=== PATIENT | female | born 2000 | race Hispanic/Latino ===

== ENCOUNTER 2018-11-28 20:53 | Emergency (ER) | payer MEDICAID, OTHER ==
[2018-11-28] MEDS ORDERED: ACETAMINOPHEN EXTRA STRENGTH 500 MG TABLET ONE (21:20)
[2018-11-28 21:46] LABS: RAPID GROUP A STREP NEGATIVE (NEGATIVE)
[2018-11-28 22:45] LABS: APPEARANCE,URINE Clear (CLEAR); BILIRUBIN,URINE Negative (NEGATIVE); COLOR,URINE Yellow (YELLOW); GLUCOSE, URINE (UA) Negative (NEGATIVE); HCG,QUAL RESULT NEGATIVE (NEGATIVE); KETONES,URINE 15 mg/dL (NEGATIVE); LEUKOCYTE ESTERASE ,URINE Moderate (NEGATIVE); NITRATE,URINE Negative (NEGATIVE); OCCULT BLOOD,URINE Negative (NEGATIVE); PROTEIN,URINE Negative (NEGATIVE)
[2018-11-28 23:04] LABS: RBC,URINE 0-1 /HPF (0-1)
[2018-11-28 23:05] LABS: BACTERIA,URINE Few /HPF (None Seen)
[2018-11-28 23:06] LABS: SQUAMOUS EPITHELIAL CELL,UR 0-2 /HPF (0-2)
== END 2018-11-28 23:37 | disposition home or self-care (01) ==
LOC: EDH 20:53
DX: J11.1 Influenza due to unidentified influenza virus with other respiratory manifestations (principal); N39.0 Urinary tract infection, site not specified; E03.9 Hypothyroidism, unspecified; Z98.84 Bariatric surgery status
CPT/HCPCS: 81001; 81025; 87804; 87880

== ENCOUNTER 2020-03-13 05:44 | Emergency (ER) | payer OTHER ==
[2020-03-13] MEDS ORDERED: L.E.T. GEL 4%/0.5%/0.18% 3ML 3 ML/SYR SYG TP ONE (06:05)
[2020-03-13] MEDS ORDERED: LIDOCAINE HCL 1% 20 ML VIAL ONE (06:31)
== END 2020-03-13 07:03 | disposition home or self-care (01) ==
LOC: EDH 05:44
DX: S21.001A Unspecified open wound of right breast, initial encounter (principal); N64.9 Disorder of breast, unspecified; E03.9 Hypothyroidism, unspecified; Z72.0 Tobacco use; W49.04XA Ring or other jewelry causing external constriction, initial encounter; Y93.89 Activity, other specified; Y92.89 Other specified places as the place of occurrence of the external cause; Y99.8 Other external cause status
CPT/HCPCS: 99282